=== PATIENT | male | born 1940 | race Caucasian/White ===

== ENCOUNTER → 2016-10-27 | Outpatient (CLI) | payer MEDICARE | LOC: LAB 11:40 | DX: M54.9 Dorsalgia, unspecified (principal) | CPT/HCPCS: 36415; 86140; 86812 ==

== ENCOUNTER 2016-12-30 19:17 | Emergency (ER) | payer MEDICARE | END 2016-12-30 20:06 | disposition home or self-care (01) | LOC: ER1 19:17 | DX: S61.412A Laceration without foreign body of left hand, initial encounter (principal); X58.XXXA Exposure to other specified factors, initial encounter | CPT/HCPCS: 12001; 90471; 90714; 99283 ==